=== PATIENT | female | born 1955 | race Caucasian/White ===

== ENCOUNTER → 2016-09-24 | Outpatient (CLI) | payer BC | END | disposition home or self-care (01) | LOC: LABWHC1 06:59 | PROVIDERS: ATTEND Obstetrics & Gynecology | DX: R53.83 Other fatigue (principal); Z13.220 Encounter for screening for lipoid disorders; Z13.1 Encounter for screening for diabetes mellitus; Z13.29 Encounter for screening for other suspected endocrine disorder | CPT/HCPCS: 36415; 80061; 82306; 82947; 84439; 84443 ==

== ENCOUNTER → 2017-09-22 | Outpatient (CLI) | payer BC ==
[2017-09-22 08:14] LABS: T4, Free (Free Thyroxine) 0.98 ng/dL (0.78-2.19)
== END | disposition home or self-care (01) ==
LOC: LABWHC1 07:15
PROVIDERS: ATTEND Obstetrics & Gynecology
DX: Z13.1 Encounter for screening for diabetes mellitus (principal); Z13.220 Encounter for screening for lipoid disorders
CPT/HCPCS: 36415; 80061; 82947; 84439; 84443

== ENCOUNTER → 2018-01-20 | Outpatient (CLI) | payer BC ==
--- NOTE | 2018-01-20 14:39 | US ---
EXAMINATION TYPE: US thyroid st tissue head/neck DATE OF EXAM: 01/20/2018 COMPARISON: NONE CLINICAL HISTORY: R09.88 SYMPTOMS/SIGNS INVOLVING CIRCULATORY AND RESP SYSTEMS. Pressure within thyro id area. Lump left neck GLAND SIZE: Right Lobe: 4.6 x 1.8 x 1.6 cm Overall Parenchyma: homogenous Left Lobe: 5.6 x 2.7 x 2.6 cm Overall Parenchyma: homogeneous Isthmus Thickness: 0.3 cm NODULES RIGHT: # of nodules measured on right: 2 1. 0.9 X 0.8 x 0.9 cm mixed nodule at the mid pole with well-defined margins; . This nodule is wid er than tall and shows intranodular vascularity. Prior size: no prior exam 2. 1.5 X 0.7 x 1.4 cm mixed nodule at the lower/medial pole with well-defined margins; . This nodul e is wider than tall and shows intranodular vascularity. Prior size: no prior exam LEFT: # of nodules measured on left: 2 1. 2.4 X 1.8 x 2.3 cm mixed nodule at the upper/mid pole with well-defined margins; . This nodule is wider than tall and shows intranodular vascularity. Prior size: no prior 2. 1.5 X 1.0 x 1.3 cm mixed nodule at the lower pole with well-defined margins; . This nodule is wi coco than tall and shows intranodular vascularity. Prior size: no prior ISTHMUS: # of nodules measured in the isthmus: 0 Multiple thyroid nodules noted, largest 2 measured bilaterally IMPRESSION: Findings compatible with multinodular goiter.
== END | disposition home or self-care (01) ==
LOC: RADUSWWP 12:55
PROVIDERS: ATTEND Family Medicine
DX: R09.89 Other specified symptoms and signs involving the circulatory and respiratory systems (principal)
CPT/HCPCS: 76536

== ENCOUNTER → 2018-02-01 | Outpatient (CLI) | payer BC ==
[2018-02-01 17:09] LABS: T4, Free (Free Thyroxine) 0.81 ng/dL (0.78-2.19)
== END | disposition home or self-care (01) ==
LOC: LABWHC1 16:04
PROVIDERS: ATTEND Otolaryngology
DX: E04.1 Nontoxic single thyroid nodule (principal)
CPT/HCPCS: 36415; 84439; 84443; 86376

== ENCOUNTER 2018-02-10 09:35 | Day surgery (SDC) | payer BC ==
[2018-02-10 10:03] VITALS: RESP 16; TEMP 98.6
[2018-02-10 11:18] VITALS: BP 124/58; PULSE 74
--- NOTE | 2018-02-13 13:23 | US ---
ULTRASOUND GUIDED FNA THYROID BIOPSY: CLINICAL HISTORY: 1 right thyroid nodule into left thyroid nodules requested for biopsy FINDINGS: The procedure was explained to the patient. The risks, complications, benefits and alternatives were discussed and any questions were answered. Informed consent was obtained. Patient was placed supin e on the ultrasound table and prepped and draped in the usual sterile fashion. Utilizing a 25 gauge needle, five passes were made into the 3 requested thyroid nodules. Patient was stable throughout the procedure. Pathology is pending. All elements of maximal barrier technique were utilized. IMPRESSION: 1. Successful ultrasound guided FNA thyroid biopsy.
== END 2018-02-10 11:22 | disposition home or self-care (01) ==
LOC: RADPROMAIN 09:35
PROVIDERS: ATTEND Otolaryngology
DX: E04.1 Nontoxic single thyroid nodule (principal)
CPT/HCPCS: 10022; 76942; 88173; 88305

== ENCOUNTER → 2018-08-22 | Outpatient (CLI) | payer BC ==
--- NOTE | 2018-08-22 14:39 | US ---
EXAMINATION TYPE: US thyroid st tissue head/neck DATE OF EXAM: 08/22/2018 COMPARISON: 02/10/2018, 02/09/2018 CLINICAL HISTORY: E04.1 Thyroid nodule. GLAND SIZE: Right Lobe: 4.4 x 1.3 x 1.4 cm Overall Parenchyma: heterogenous Left Lobe: 5.1 x 2.1 x 2.1 cm Overall Parenchyma: heterogeneous Isthmus Thickness: 0.4 cm NODULES RIGHT: # of nodules measured on right: 2 1. 0.9 X 0.7 x 0.9 cm isoechoic mixed nodule at the mid pole with well-defined margins. This nodul e is wider than tall and shows no intranodular vascularity. Prior size: 0.9 x 0.8 x 0.9cm 2. 1.7 X 0.7 x 1.6 cm isoechoic mixed nodule at the lower medial/isthmus pole with margins. This no dule is wider than tall and shows no intranodular vascularity. Prior size: 1.5 x 0.7 x 1.4 cm LEFT: # of nodules measured on left: 2 1. 2.8 X 1.8 x 2.2 cm isoechoic mixed nodule at the mid pole with well-defined margins . This nodu le is taller than wide and shows intranodular vascularity. Prior size: 2.4 x 1.8 x 2.3 cm 2. 1.5 X 0.9 x 1.1 cm isoechoic mixed nodule at the lower pole with well-defined margins. This nodu le is wider than tall and shows . Prior size: 1.5 x 1.0 x 1.3 cm ISTHMUS: # of nodules measured in the isthmus: 0 Bilateral neck scanned, no evidence of lymphadenopathy. IMPRESSION: 1. Slight increase in size of a lower right lobe thyroid nodule. 2. There may be some mild increase of the left mid pole thyroid nodule.
== END | disposition home or self-care (01) ==
LOC: RADUSWWP 08:01
PROVIDERS: ATTEND Otolaryngology
DX: E04.2 Nontoxic multinodular goiter (principal)
CPT/HCPCS: 76536

== ENCOUNTER → 2018-09-22 | Outpatient (CLI) | payer BC ==
[2018-09-22 16:52] LABS: T4, Free (Free Thyroxine) 1.2 ng/dL (0.80-1.80)
== END | disposition home or self-care (01) ==
LOC: LABWHC1 08:20
PROVIDERS: ATTEND Obstetrics & Gynecology
DX: Z13.220 Encounter for screening for lipoid disorders (principal); Z13.1 Encounter for screening for diabetes mellitus
CPT/HCPCS: 36415; 80061; 82947; 84439; 84443

== ENCOUNTER → 2019-03-02 | Outpatient (CLI) | payer BC ==
--- NOTE | 2019-03-02 10:36 | US ---
EXAMINATION TYPE: US thyroid st tissue head/neck DATE OF EXAM: 03/02/2019 COMPARISON: US to 12/03 and 02/10/2018 as well as 05/23/2018 CLINICAL HISTORY: E04.1 thyroid nodule. F/U Nodules GLAND SIZE: Right Lobe: 4.9 x 1.6 x 1.3 cm Overall Parenchyma: heterogenous Left Lobe: 5.3 x 2.3 x 1.9 cm Overall Parenchyma: heterogeneous Isthmus Thickness: 0.3 cm NODULES RIGHT: # of nodules measured on right: 2 1. 1.1 X 0.6 x 1.1 cm mixed nodule at the mid pole with well-defined margins; This nodule is wider than tall and shows intranodular vascularity. This has been previously biopsied. Prior size: 0.9 x 0.7 x 0.9 cm 2. 0.7 X 0.6 x 0.7 cm mixed nodule at the lower pole with well-defined margins; This nodule is wide r than tall and shows intranodular vascularity. Prior size: 1.7 x 0.7 x 1.6 cm LEFT: # of nodules measured on left: 2 1. 2.7 X 2.0 x 2.2 cm mixed nodule at the mid pole with well-defined margins; This nodule is wider than tall and shows intranodular vascularity. This has been previously biopsied. Prior size: 2.8 x 1.8 x 2.2 cm 2. 1.3 X 0.8 x 1.4 cm mixed nodule at the lower pole with well-defined margins; This nodule is wid er than tall and shows intranodular vascularity. Prior size: 1.5 x 0.9 x 1.1 cm Bilateral neck scanned, no evidence of lymphadenopathy. Innumerable sub-centimeter nodules on right, largest 2 measured, mid pole nodule slightly increased in size. Left nodules stable. IMPRESSION: Similar size of the bilateral thyroid nodules, 2 of which have previously been biopsied. No new great er than 1 cm nodule is seen.
== END | disposition home or self-care (01) ==
LOC: RADUSWWP 09:33
PROVIDERS: ATTEND Otolaryngology
DX: E04.1 Nontoxic single thyroid nodule (principal); Z98.890 Other specified postprocedural states
CPT/HCPCS: 76536

== ENCOUNTER → 2019-09-21 | Outpatient (CLI) | payer BC ==
[2019-09-21 16:25] LABS: Chol/HDL Ratio 3.2; LDL Cholesterol,Calculated 121.2 mg/dL (0.0-131.0); VLDL Calculation 12.8 mg/dL (5.00-40.00)
[2019-09-21 16:34] LABS: T4, Free (Free Thyroxine) 1.3 ng/dL (0.80-1.80)
== END | disposition home or self-care (01) ==
LOC: LABWHC1 07:37
PROVIDERS: ATTEND Obstetrics & Gynecology
DX: R53.83 Other fatigue (principal); Z13.220 Encounter for screening for lipoid disorders; Z13.1 Encounter for screening for diabetes mellitus; Z13.29 Encounter for screening for other suspected endocrine disorder
CPT/HCPCS: 36415; 80061; 82306; 82947; 84439; 84443

== ENCOUNTER 2020-08-13 07:34 | Day surgery (SDC) | payer BC ==
[2020-08-08 12:47] VITALS: BMI 25.0
[~2020-08-13 07:34] MED LIST: ACETAMINOPHEN TAB 500 MG TAB PO PRN; DEXAMETHASONE SOD PHOSPHATE 4 MG/ML 1 ML VIAL IV ONE; HEPARIN SODIUM,PORCINE 5,000 UNIT/ML 1 ML VIAL SQ PRN; LACTATED RINGERS 1,000 ML IV SCH; LIDOCAINE 1% (10MG/ML) FOR IV START INTRADERMA PRN; ONDANSETRON 4 MG/2 ML VIAL IVP ONE
[2020-08-13 08:05] VITALS: RESP 16
--- NOTE | 2020-08-13 09:28 | P.GSHP ---
History of Present Illness H&P Date: 08/13/20 Chief Complaint: Right upper quadrant pain Is a 64-year-old female who is developed complaints of right quadrant pain. Her recent ultrasound shows evidence of cholelithiasis. Past Medical History Past Medical History: No Reported History Additional Past Medical History / Comment(s): GALLBLADDER DISORDER. UMBILICAL HERNIA History of Any Multi-Drug Resistant Organisms: None Reported Past Surgical History: Appendectomy, Hysterectomy Additional Past Surgical History / Comment(s): COLONOSCOPY Past Anesthesia/Blood Transfusion Reactions: No Reported Reaction Smoking Status: Never smoker - Past Family History Mother Family Medical History: Cancer Additional Family Medical History / Comment(s): Mother Breast Cancer: Brother(s) Family Medical History: Cancer Medications and Allergies Home Medications Medication Instructions Recorded Confirmed Type No Known Home Medications 02/03/18 08/13/20 History Allergies Allergy/AdvReac Type Severity Reaction Status Date / Time cefdinir [From Omnicef] AdvReac RECTAL Verified 08/13/20 08:05 BLEEDING Surgical - Exam Vital Signs Temp Pulse Resp BP Pulse Ox 98.9 F 105 H 16 150/60 99 08/13/20 08:04 08/13/20 08:04 08/13/20 08:04 08/13/20 08:04 08/13/20 08:04 - General well developed, well nourished, no distress - Eyes PERRL - ENT normal pinna - Neck no masses - Respiratory normal expansion - Cardiovascular Rhythm: regular - Abdomen Abdomen: soft, non tender Assessment and Plan Assessment: Right upper quadrant pain Cholelithiasis We'll perform laparoscopic cholecystectomy
[2020-08-13] MEDS ORDERED: GLYCOPYRROLATE 0.2 MG/ML 2 ML VIAL ONE (09:30)
[2020-08-13] MEDS ORDERED: SUCCINYLCHOLINE CHLORIDE 100 MG/5 ML SYR IV ONE (09:30)
[2020-08-13] MEDS ORDERED: ROCURONIUM 10 MG/ML (10 ML VIAL) IV ONE (09:30)
[2020-08-13] MEDS ORDERED: NEOSTIGMINE 1 MG/ML 10 ML VIAL ONE (09:30)
[2020-08-13] MEDS ORDERED: LIDOCAINE 1% INJ 10MG/ML (20 ML MDV) ONE (09:30)
[2020-08-13] MEDS ORDERED: PHENYLEPHRINE 10 MG/ML VIAL ONE (09:30)
[2020-08-13] MEDS ORDERED: PROPOFOL 10 MG/ML 20 ML VIAL IV ONE (09:30)
[2020-08-13] MEDS ORDERED: fentaNYL (PF) 50 MCG/ML 2 ML AMP ONE (09:30)
[2020-08-13] MEDS ORDERED: MIDAZOLAM 2 MG/2 ML VIAL ONE (09:30)
[2020-08-13] MEDS ORDERED: BUPIVACAINE (PF) 0.25% 30 ML VIAL SQ ONE (10:03)
--- NOTE | 2020-08-13 10:26 | P.OP ---
Date of Procedure: 08/13/20 Preoperative Diagnosis: Cholelithiasis Postoperative Diagnosis: Cholecystitis Cholelithiasis Procedure(s) Performed: Laparoscopic cholecystectomy Anesthesia: KORI Surgeon: Sidney Denny Estimated Blood Loss (ml): 5 Pathology: other (Gallbladder) Condition: stable Description of Procedure: The patient was placed on the operating table. The patient received a general endotracheal tube anesthesia. The patients abdomen was prepped and draped in the usual sterile fashion. Through an infraumbilical stab incision, the fascia of the anterior abdominal wall was grasped with a pair of Kochers and then the Veress needle was placed in the peritoneal cavity. Position of the Veress needle was confirmed with positive drop test. The abdomen was then insufflated. After adequate insufflation, the 10 mm trocar was placed in the peritoneal cavity. Following this the laparoscope was placed in the peritoneal cavity. The patient was placed in the head-up, right side up position and then a 5 mm trocar was placed in the right lateral and right subcostal position under direct visualization. A 8 mm trocar was placed in the epigastric position. The gallbladder was grasped in the fundus and infundibulum. Traction on the gallbladder was placed in the lateral and the cephalad positions. The triangle of Calot was visualized.. The cystic duct was bluntly dissected until the union of the cystic duct and common bile duct was seen. A critical view of safety was achieved. The cystic duct was then divided and sealed with the Harmonic scissors. A PDS Endoloop was then placed throughout the cystic duct stump. The cystic artery divided and sealed with the Harmonic scissors. The gallbladder was then removed from the liver bed using Harmonic scissors. The gallbladder was then extracted through the epigastric port site. Operative field was checked for any bleeding spots and Harmonic scissors was used to coagulate the liver bed. The abdomen was irrigated. The trocars were removed. The skin was closed using interrupted 3-0 Vicryl suture. Dermabond dressing were applied. The patient tolerated the procedure well.
[2020-08-13 10:32] VITALS: TEMP 98.4
[2020-08-13] MEDS: HYDROmorphone 0.5 MG/0.5 ML SYRINGE IVP PRN ×2 (10:38→10:53)
[2020-08-13] MEDS ORDERED: KETOROLAC 15 MG/ML 1 ML VIAL IVP ONE (10:57)
[2020-08-13 13:03] VITALS: BP 109/71; PULSE 70
== END 2020-08-13 13:07 | disposition home or self-care (01) ==
LOC: OR 07:34
PROVIDERS: ATTEND Surgery
DX: K80.10 Calculus of gallbladder with chronic cholecystitis without obstruction (principal); K42.9 Umbilical hernia without obstruction or gangrene; Z90.710 Acquired absence of both cervix and uterus; Z90.89 Acquired absence of other organs; Z80.3 Family history of malignant neoplasm of breast; Z80.9 Family history of malignant neoplasm, unspecified; Z88.8 Allergy status to other drugs, medicaments and biological substances
CPT/HCPCS: 88304; 47562; J2250; J1644; J1100; J2370; J2710; J0690; J2405; J2001; J3010; J1885; J0330; J2704; J1170

== ENCOUNTER → 2020-09-17 | Outpatient (CLI) | payer BC ==
[2020-09-17 12:40] LABS: Basophils % (A) 0 %; Eosinophils # (A) 0.1 k/uL (0-0.7); Eosinophils % (A) 1 %; HCT 41.4 % (34.0-46.0); HGB 13.9 gm/dL (11.4-16.0); Lymphocytes # (A) 1.6 k/uL (1.0-4.8); Lymphocytes % (A) 24 %; MCH 30.3 pg (25.0-35.0); MCHC 33.6 g/dL (31.0-37.0); MCV 90.2 fL (80.0-100.0); Mean Platelet Volume 7.2; Monocytes # (A) 0.4 k/uL (0-1.0); Monocytes % (A) 6 %; Neutrophils # (A) 4.5 k/uL (1.3-7.7); Neutrophils % (A) 68 %; Platelet Count 278 k/uL (150-450); RBC 4.59 m/uL (3.80-5.40); WBC 6.6 k/uL (3.8-10.6)
== END | disposition home or self-care (01) ==
LOC: LABPAT 11:27
PROVIDERS: ATTEND Surgery
DX: Z01.812 Encounter for preprocedural laboratory examination (principal)
CPT/HCPCS: 36415; 85025

== ENCOUNTER 2020-09-23 06:05 | Day surgery (SDC) | payer BC ==
[2020-09-16 15:53] VITALS: BMI 25.0
[~2020-09-23 06:05] MED LIST changes: +MIDAZOLAM 2 MG/2 ML VIAL IV PRN
[2020-09-23] MEDS: fentaNYL (PF) 50 MCG/ML 2 ML AMP IVP PRN ×3 (07:06→09:16)
[2020-09-23] MEDS ORDERED: NEOSTIGMINE 1 MG/ML 10 ML VIAL ONE (07:40)
[2020-09-23] MEDS ORDERED: GLYCOPYRROLATE 0.2 MG/ML 2 ML VIAL ONE (07:40)
[2020-09-23] MEDS ORDERED: LIDOCAINE 1% INJ 10MG/ML (20 ML MDV) ONE (07:40)
[2020-09-23] MEDS ORDERED: SUCCINYLCHOLINE CHLORIDE 100 MG/5 ML SYR IV ONE (07:40)
[2020-09-23] MEDS ORDERED: fentaNYL (PF) 50 MCG/ML 2 ML AMP ONE (07:40)
[2020-09-23] MEDS ORDERED: ROPIVACAINE 5 MG/ML 30 ML VIAL ONE (07:40)
[2020-09-23] MEDS ORDERED: MIDAZOLAM 2 MG/2 ML VIAL ONE (07:40)
[2020-09-23] MEDS ORDERED: KETAMINE 10 MG/ML 20 ML VIAL ONE (07:40)
[2020-09-23] MEDS ORDERED: PROPOFOL 10 MG/ML 20 ML VIAL IV ONE (07:40)
[2020-09-23] MEDS ORDERED: ROCURONIUM 10 MG/ML (5 ML VIAL) IV ONE (07:40)
[2020-09-23] MEDS ORDERED: BUPIVACAINE (PF) 0.25% 30 ML VIAL SQ ONE ×2 (08:05)
--- NOTE | 2020-09-23 08:44 | P.GSHP ---
History of Present Illness H&P Date: 09/23/20 Chief Complaint: Umbilical hernia This 64-year-old female who presents today for laparoscopic robotic tested repair of. Umbilical hernia. She's had an umbilical hernia located in the super umbilical position for several years. Past Medical History Past Medical History: Cancer Additional Past Medical History / Comment(s): UMBILICAL HERNIA, SKIN CANCER , THYROID NODULES History of Any Multi-Drug Resistant Organisms: None Reported Past Surgical History: Appendectomy, Hysterectomy Additional Past Surgical History / Comment(s): COLONOSCOPY Past Anesthesia/Blood Transfusion Reactions: No Reported Reaction Smoking Status: Never smoker - Past Family History Mother Family Medical History: Cancer Additional Family Medical History / Comment(s): Mother Breast Cancer: Brother(s) Family Medical History: Cancer Medications and Allergies Home Medications Medication Instructions Recorded Confirmed Type Ibuprofen [Motrin] 600 mg PO Q6HR PRN #40 tab 08/13/20 09/23/20 Rx Acetaminophen Tab [Tylenol] 650 mg PO Q6H PRN 09/16/20 09/23/20 History Allergies Allergy/AdvReac Type Severity Reaction Status Date / Time cefdinir [From Omnicef] AdvReac RECTAL Verified 09/23/20 06:14 BLEEDING SURGICAL GLUE Allergy Itching Uncoded 09/23/20 06:14 Surgical - Exam Vital Signs Temp Pulse Resp BP Pulse Ox 98.9 F 95 16 140/62 99 09/23/20 06:18 09/23/20 06:18 09/23/20 06:18 09/23/20 06:18 09/23/20 06:18 - General well developed, well nourished, no distress - Eyes PERRL - ENT normal pinna - Neck no masses - Respiratory normal expansion - Cardiovascular Rhythm: regular - Abdomen Abdomen: soft, non tender Hernia: umbilical (1 cm) Assessment and Plan Assessment: The vocal hernia. We'll perform laparoscopic robotic-assisted repair.
--- NOTE | 2020-09-23 08:47 | P.OP ---
Date of Procedure: 09/23/20 Preoperative Diagnosis: Umbilical hernia Postoperative Diagnosis: Umbilical hernia incarcerated Procedure(s) Performed: Laparoscopic robotic-assisted repair of Incarcerated umbilical hernia Anesthesia: KORI Surgeon: Sidney Denny Estimated Blood Loss (ml): 5 Pathology: other (Partial omentum) Condition: stable Disposition: PACU Description of Procedure: The patient was placed on the operating table in the supine position. He received general anesthesia. His abdomen was prepped and draped usual fashion. Using a 5 mm optical trocar under direct visualization the peritoneal cavity was entered in the left upper quadrant. The abdomen was then insufflated. The lapa roscope was placed back into the perineal cavity. Next a 8 mm robotic trocar was placed in the left lower quadrant and a 12 mm robotic trocar was placed in the left lateral position. The original 5 mm trocar was exchanged for a 8 mm robotic trocar. The patient's placed in the left side up position. And the patient was undocked the robot. The umbilical hernia was visualized. Using hook cautery the peritoneum over the umbilical hernia was excised. Incarcerated omentum was dissected free and sent to pathology. The fascial opening was repaired using 0V LOC suture. Next a piece of 11 cm round ventral light ST mesh was placed into the. Cavity and secured with 2 OV lock suture. The patient was undocked the robot. The needles were retrieved. The fascia of the 12 mm trocar site was closed with 0 Ethibond suture. Skin was closed interrupted 3-0 Monocryl suture. Dermabond dressings was applied. Patient top procedure well and was sent to recovery room stable condition.
[2020-09-23 09:01] VITALS: TEMP 97
[2020-09-23] MEDS ORDERED: KETOROLAC 15 MG/ML 1 ML VIAL IVP ONE (09:08)
[2020-09-23 09:09] VITALS: RESP 16
--- NOTE | 2020-09-23 10:40 | P.ANPRN ---
Procedure Note - Anesthesia - Nerve Block Performed Bilateral Rectus Abdominis Single Time Out Performed: Yes ([id number]) Date of Procedure: 09/23/20 Procedure Start Time: 07:06 Procedure Stop Time: 07:12 Location of Patient: PreOp Indication: Acute Post-Operative Pain, Requested by Surgeon Specifically requested for management of pain by DrJessica: Sidney Denny Sedation Type: Sedate with meaningful contact maintained Preparation: Sterile Prep Position: Supine Catheter: None Needle Types: Pajunk Needle Gauge: 21 Ultrasound used to visualize needle placement: Yes Ultrasound used to observe medication spread: Yes Injectate: 0.5% Ropivacaine (see comment for volume) (15cc each side) Blood Aspirated: No Pain Paresthesia on Injection Noted: No Resistance on Injection: Normal Image Stored and Saved: Yes Events: Uneventful and Well Tolerated
[2020-09-23 11:18] VITALS: BP 122/74; PULSE 75
== END 2020-09-23 11:19 | disposition home or self-care (01) ==
LOC: OR 06:05
PROVIDERS: ATTEND Surgery
DX: K42.0 Umbilical hernia with obstruction, without gangrene (principal); E04.1 Nontoxic single thyroid nodule; Z85.828 Personal history of other malignant neoplasm of skin; Z90.710 Acquired absence of both cervix and uterus; Z90.89 Acquired absence of other organs; Z98.890 Other specified postprocedural states; Z80.3 Family history of malignant neoplasm of breast; Z80.9 Family history of malignant neoplasm, unspecified; Z88.1 Allergy status to other antibiotic agents; Z91.09 Other allergy status, other than to drugs and biological substances; E07.9 Disorder of thyroid, unspecified
CPT/HCPCS: 49652; S2900; 64488; 88302

== ENCOUNTER 2020-11-13 08:48 | Day surgery (SDC) | payer BC ==
[2020-11-11 09:47] VITALS: BMI 24.5
[~2020-11-13 08:48] MED LIST changes: -ACETAMINOPHEN TAB 500 MG TAB PO PRN; -DEXAMETHASONE SOD PHOSPHATE 4 MG/ML 1 ML VIAL IV ONE; -HEPARIN SODIUM,PORCINE 5,000 UNIT/ML 1 ML VIAL SQ PRN; -LIDOCAINE 1% (10MG/ML) FOR IV START INTRADERMA PRN; -MIDAZOLAM 2 MG/2 ML VIAL IV PRN; -ONDANSETRON 4 MG/2 ML VIAL IVP ONE
[2020-11-13 09:14] VITALS: RESP 16; TEMP 98.5
[2020-11-13] MEDS ORDERED: LIDOCAINE 1% (10MG/ML) FOR IV START INTRADERMA ONE (09:20)
[2020-11-13] MEDS ORDERED: LIDOCAINE 1% INJ 10MG/ML (20 ML MDV) ONE (10:21)
[2020-11-13] MEDS ORDERED: PROPOFOL 10 MG/ML 20 ML VIAL IV ONE (10:21)
--- NOTE | 2020-11-13 10:35 | P.GSHP ---
History of Present Illness H&P Date: 11/13/20 Chief Complaint: Epigastric pain, history of colon polyps This is a 65-year-old female is some complaints of epigastric pain. She also has a history of colon polyps. Patient presents today for EGD and colonoscopy. Past Medical History Past Medical History: Cancer Additional Past Medical History / Comment(s): Hx skin cancer, colon polyps, Goiter History of Any Multi-Drug Resistant Organisms: None Reported Past Surgical History: Appendectomy, Cholecystectomy, Hernia Repair, Hysterectomy Additional Past Surgical History / Comment(s): COLONOSCOPY, UMBILICAL HERNIA (SEPTEMBER 2020) Past Anesthesia/Blood Transfusion Reactions: No Reported Reaction, Motion Sickness Past Psychological History: No Psychological Hx Reported Smoking Status: Never smoker Past Alcohol Use History: Occasional Past Drug Use History: None Reported - Past Family History Mother Family Medical History: Cancer Additional Family Medical History / Comment(s): Breast Cancer Brother(s) Family Medical History: Cancer Additional Family Medical History / Comment(s): TESTICULAR CANCER Medications and Allergies Home Medications Medication Instructions Recorded Confirmed Type Calcium Carbonate [Calcium] 650 mg PO DAILY 11/11/20 11/13/20 History Cyanocobalamin (Vitamin B-12) 1,000 mcg PO DAILY 11/11/20 11/13/20 History [Vitamin B-12] Kelp 150 mcg PO DAILY 11/11/20 11/13/20 History Kelp 325 mcg PO DAILY 11/11/20 11/13/20 History Multivit with Calcium,Iron,Min 1 each PO DAILY 11/11/20 11/13/20 History [Women's Multivitamin] Vining-3 Fatty Acids [Vining-3] 1,000 mg PO DAILY 11/11/20 11/13/20 History Allergies Allergy/AdvReac Type Severity Reaction Status Date / Time cefdinir [From Omnicef] AdvReac RECTAL Verified 11/11/20 09:27 BLEEDING SURGICAL GLUE Allergy Itching Uncoded 11/11/20 09:27 Surgical - Exam Vital Signs Temp Pulse Resp BP Pulse Ox 98.5 F 102 H 16 139/65 98 11/13/20 09:10 11/13/20 09:10 11/13/20 09:10 11/13/20 09:10 11/13/20 09:10 - General well developed, well nourished, no distress - Eyes PERRL - ENT normal pinna - Neck no masses - Respiratory normal expansion - Cardiovascular Rhythm: regular - Abdomen Abdomen: soft, non tender Assessment and Plan Assessment: Epigastric pain and history of colon polyps. We'll perform EGD and colonoscopy.
--- NOTE | 2020-11-13 10:46 | P.OP ---
Date of Procedure: 11/13/20 Preoperative Diagnosis: Epigastric pain. History of colon polyps Postoperative Diagnosis: Antral gastritis Procedure(s) Performed: EGD Colonoscopy Anesthesia: MAC Surgeon: Sidney Denny Pathology: other (Antrum) Condition: stable Disposition: PACU Description of Procedure: Patient's placed on the endoscopy table in the lateral position. She received IV sedation. The gastroscope was oropharynx passed in the esophagus and stomach. Scope was then placed through the pylorus. First and second portion duodenum appeared normal. The scope was then brought back the antrum and this was mildly inflamed. A biopsies performed. The scope was then retroflexed and the remainder of the stomach appeared normal. There is no significant hiatal hernia. The GE junction was at 40 cm. The distal esophagus appeared normal. The proximal esophagus.. Scope was withdrawn for patient. Next, digital rectal exam was performed which revealed no abnormalities. The flexible colonoscope was then placed the patient's anus and passed throughout the entire colon. The ileocecal valve was visualized. The cecum, ascending and transverse colon appeared normal. In the descending and sigmoid colon there was extensive diverticular changes. There was no evidence of diverticulitis. The scope was then brought back the rectum and this appeared normal. The scope was withdrawn for patient.
[2020-11-13 11:27] VITALS: BP 122/74; PULSE 88
== END 2020-11-13 11:28 | disposition home or self-care (01) ==
LOC: ORWHC2ENDO 08:48
PROVIDERS: ATTEND Surgery
DX: Z12.11 Encounter for screening for malignant neoplasm of colon (principal); K29.50 Unspecified chronic gastritis without bleeding; Z86.010 Personal history of colon polyps; Z85.828 Personal history of other malignant neoplasm of skin; E04.9 Nontoxic goiter, unspecified; Z90.49 Acquired absence of other specified parts of digestive tract; Z90.710 Acquired absence of both cervix and uterus; Z98.890 Other specified postprocedural states; Z90.89 Acquired absence of other organs; Z80.3 Family history of malignant neoplasm of breast; Z80.43 Family history of malignant neoplasm of testis; Z88.1 Allergy status to other antibiotic agents; Z91.09 Other allergy status, other than to drugs and biological substances
CPT/HCPCS: 88305; 43239; J2001; J2704; G0105; 45378

== ENCOUNTER → 2021-11-04 | Outpatient (CLI) | payer BC ==
--- NOTE | 2021-11-04 16:15 | CT ---
EXAMINATION TYPE: CT abdomen wo con DATE OF EXAM: 11/04/2021 COMPARISON: No previous CT scan is available for comparison HISTORY: RUQ pain CT DLP: 200.9 mGycm Automated exposure control for dose reduction was used. TECHNIQUE: Helical acquisition of images was performed from the lung bases through the top of iliac crest to include entire abdomen. CONTRAST: Performed with Oral Contrast and without IV contrast. FINDINGS: LUNG BASES: 3 mm left lateral basal pleural-based nodule, requiring no further follow-up if low risk patient. If high risk patient, optional follow-up CT scan in 12 months can be considered. LIVER/GB: Scattered hepatic cysts measuring up to 3.1 cm. Other scattered smaller hepatic hypodensiti es, too small to characterize. Unremarkable liver otherwise. Previous cholecystectomy. PANCREAS: No significant abnormality is seen. SPLEEN: No significant abnormality is seen. ADRENALS: No significant abnormality is seen. KIDNEYS: No significant abnormality is seen. BOWEL: Unremarkable stomach, duodenum and visualized small bowel. Scattered uncomplicated colonic di verticulosis. LYMPH NODES: No pathologically enlarged abdominal lymph nodes. OSSEOUS STRUCTURES: Degenerative changes at L1-2 and L5-S1 levels. FREE AIR: No free air is visualized. OTHER: No free abdominal fluid. Small fat-containing umbilical hernia. IMPRESSION: Scattered hepatic cysts as described above. Other tiny hepatic hypodensities, too small to characteri ze by this nonenhanced CT scan. Further ultrasound assessment can be considered. Other incidental fin dings and recommendations as described above.
== END | disposition home or self-care (01) ==
LOC: RADCTMAIN 14:53
PROVIDERS: ATTEND Family Medicine
DX: K76.89 Other specified diseases of liver (principal)
CPT/HCPCS: 74150

== ENCOUNTER → 2022-09-30 | Outpatient (CLI) | payer BC ==
--- NOTE | 2022-09-30 20:52 | CT ---
EXAMINATION TYPE: CT chest abdomen w con CT DLP: 1126 mGycm, Automated exposure control for dose reduction was used. DATE OF EXAM: 09/30/2022 5:23 PM COMPARISON: CT 11/04/2021, thyroid ultrasound 03/02/2019. CLINICAL INDICATION:Female, 66 years old with history of K76.89 oth specified diseases of liver; PHH, nodules, right sided abdominal pain Technique: Multiple axial images of the chest, abdomen, and pelvis were obtained. Two-dimensional cor onal and sagittal reconstructions were obtained. Contrast used:100 mL of Isovue 300 with IV Contrast, Oral contrast used: with Oral Contrast Findings: CHEST: LUNGS/ PLEURA: Stable left 3 mm pleural-based nodule. AIRWAY: Patent and unremarkable. HEART: Size within normal limits. MEDIASTINUM: No gross evidence of adenopathy. VASCULATURE: No aortic aneurysm. MUSCULOSKELETAL: No acute osseous abnormalities. SOFT TISSUES/LYMPH NODES: Heterogenous enlarged LOWER NECK: Heterogenous enlarged thyroid gland with left thyroid nodule measuring up to 2.6 x 1.7 cm . This correlates with prior ultrasound 03/02/2019 ABDOMEN: ABDOMEN LIVER: Hepatic cysts measuring up to 3.1 cm the right hepatic lobe with adjacent cysts also present. Subcentimeter hypodense lesions throughout the liver also be representing cysts. GALLBLADDER AND BILE DUCTS: Gallbladder surgically absent. PANCREAS: Unremarkable. SPLEEN: Unremarkable. ADRENAL GLANDS: Unremarkable. KIDNEYS AND URETERS: No evidence of hydronephrosis or renal calculus. The ureters are unremarkable. Left subcentimeter probable renal cyst. STOMACH AND BOWEL: No evidence of bowel obstruction. PERITONEUM: No evidence of pneumoperitoneum or free fluid. VASCULATURE: No evidence of aortic aneurysm. MUSCULOSKELETAL: No acute osseous abnormalities LYMPH NODES: No gross evidence for lymphadenopathy. SOFT TISSUE/ABDOMINAL WALL: Fat-containing umbilical hernia. IMPRESSION: 1. Stable hepatic cysts. No suspicious hepatic lesion. 2. Stable left thyroid gland lesion. 3. Stable left lower lobe 3 mm pulmonary nodule. No further workup recommended. 4. No evidence for acute process within the chest or abdomen.
== END | disposition home or self-care (01) ==
LOC: RADCTMAIN 16:25
PROVIDERS: ATTEND Family Medicine
DX: K76.89 Other specified diseases of liver (principal); E07.9 Disorder of thyroid, unspecified; R91.1 Solitary pulmonary nodule
CPT/HCPCS: 71260; 74160; Q9967 ×2